=== PATIENT | male | born 1960 | race Hispanic/Latino ===

== ENCOUNTER 2020-12-21 22:42 | Emergency (ER) | payer MEDICARE ==
[2020-12-21 23:24] VITALS: BP 138/85
[2020-12-22 00:12] LABS: Basophils % (Auto) 0.4 % (0.0-1.8); Eosinophils # (Auto) 0.1 K/mm3 (0.0-0.4); Eosinophils % (Auto) 1.3 % (0.0-4.3); Hematocrit 40.4 % (35.5-45.6); Hemoglobin 13.5 gm/dl (11.8-15.2); Lymphocytes # (Auto) 1.8 K/mm3 (1.2-5.4); Lymphocytes % (Auto) 27.1 % (13.4-35.0); Mean Corpuscular HGB Conc 33 % (32-34); Mean Corpuscular Volume 83 fl (84-94); Monocytes # (Auto) 0.5 K/mm3 (0.0-0.8); Monocytes % (Auto) 7.3 % (0.0-7.3); Red Blood Count 4.86 M/mm3 (3.65-5.03); Red Cell Distribution Width 17.2 % (13.2-15.2)
[2020-12-22 00:23] LABS: Platelet Count 95 K/mm3 (140-440)
[2020-12-22 00:27] LABS: Alanine Aminotransferase 23 units/L (7-56); Albumin 4.4 g/dL (3.9-5); Blood Urea Nitrogen 22 mg/dL (9-20); Calcium 9.5 mg/dL (8.4-10.2); Hemolysis Index 3
[2020-12-22 00:28] LABS: BUN/Creatinine Ratio 37
--- NOTE | 2020-12-22 01:08 | Emergency Department Report ---
ED Abdominal Pain HPI - General Chief Complaint: Abdominal Pain Stated Complaint: ABD PAIN/EMESIS PUI?: No Time Seen by Provider: 12/22/20 01:01 Source: patient Mode of arrival: Wheelchair Limitations: Physical Limitation - History of Present Illness Initial Comments: Patient is a 60-year-old male who presents emergency room with complaints of right lower quadrant pain. Patient states he is having pain is in appendix. Patient states he had this once when he was 11 years old but never had his appendix removed. Patient states the pain started for 5 hours prior to arrival. Patient states the pain is worsening. Patient also complains of nausea and vomiting. Patient denies diarrhea. Patient denies fever and chills. Patient denies chest pain or shortness of breath. Patient states the pain is better with rest and worse with movement. Patient states the pain is better with remaining still. Patient denies recent travel. Patient denies recent international travel. Patient denies exposure to the novel coronavirus. Patient denies sick contacts. Patient denies fever and chills. Patient denies cough. Patient denies diarrhea. Patient denies coming in contact with anybody with symptoms of the novel coronavirus. MD Complaint: abdominal pain -: Sudden Location: RLQ Radiation: none Migration to: no migration Severity: severe Severity scale (0 -10): 10 Quality: stabbing Consistency: constant Improves With: rest Worsens With: movement Associated Symptoms: nausea, vomiting. denies: diarrhea, fever, chills, constipation, dysuria, hematemesis, hematochezia, melena, hematuria, anorexia, syncope - Related Data Previous Rx's Medication Instructions Recorded Last Taken Type Acetaminophen/Codeine [Tylenol 1 tab PO Q6H PRN #12 tab 12/22/20 Unknown Rx /Codeine # 3 tab] Ondansetron [Zofran Odt] 4 mg PO Q6HR PRN #12 tab.rapdis 12/22/20 Unknown Rx Allergies Allergy/AdvReac Type Severity Reaction Status Date / Time cyclobenzaprine Allergy Unknown Verified 12/21/20 23:24 [From Flexeril] heparin Allergy Unknown Verified 12/21/20 23:24 quetiapine [From Seroquel] Allergy Unknown Verified 12/21/20 23:24 ED Review of Systems ROS: Stated complaint: ABD PAIN/EMESIS Other details as noted in HPI Constitutional: denies: chills, fever Eyes: denies: eye pain, eye discharge, vision change ENT: denies: ear pain, throat pain Respiratory: denies: cough, shortness of breath, wheezing Cardiovascular: denies: chest pain, palpitations Endocrine: no symptoms reported Gastrointestinal: as per HPI, abdominal pain, nausea, vomiting. denies: diarrhea Genitourinary: denies: urgency, dysuria Musculoskeletal: denies: back pain, joint swelling, arthralgia Skin: denies: rash, lesions Neurological: denies: headache, weakness, paresthesias Psychiatric: denies: anxiety, depression Hematological/Lymphatic: denies: easy bleeding, easy bruising ED Past Medical Hx - Past Medical History Previous Medical History?: Yes Hx Hypertension: Yes Hx Diabetes: Yes Additional medical history: heart condition, hernia, neuropathy - Surgical History Past Surgical History?: Yes Hx Cholecystectomy: Yes Additional Surgical History: R finger - Family History Family history: no significant - Social History Smoking Status: Never Smoker Substance Use Type: None - Medications Home Medications: Home Medications Medication Instructions Recorded Confirmed Last Taken Type Acetaminophen/Codeine [Tylenol 1 tab PO Q6H PRN #12 tab 12/22/20 Unknown Rx /Codeine # 3 tab] Ondansetron [Zofran Odt] 4 mg PO Q6HR PRN #12 tab.rapdis 12/22/20 Unknown Rx ED Physical Exam - General Limitations: Physical Limitation General appearance: alert, in no apparent distress - Head Head exam: Present: atraumatic, normocephalic - Eye Eye exam: Present: normal appearance - ENT ENT exam: Present: mucous membranes moist - Neck Neck exam: Present: normal inspection - Respiratory Respiratory exam: Present: normal lung sounds bilaterally. Absent: respiratory distress, wheezes, rales - Cardiovascular Cardiovascular Exam: Present: regular rate, normal rhythm. Absent: systolic murmur, diastolic murmur, rubs, gallop - GI/Abdominal GI/Abdominal exam: Present: soft, tenderness, normal bowel sounds - Rectal Rectal exam: Present: deferred - Extremities Exam Extremities exam: Present: normal inspection - Back Exam Back exam: Present: normal inspection - Neurological Exam Neurological exam: Present: alert, oriented X3 - Psychiatric Psychiatric exam: Present: normal affect, normal mood - Skin Skin exam: Present: warm, dry, intact, normal color. Absent: rash ED Course Vital Signs 12/21/20 23:21 Temperature 99.0 F Pulse Rate 98 H Respiratory 16 Rate Blood Pressure 138/85 O2 Sat by Pulse 99 Oximetry - Reevaluation(s) Reevaluation #1: Patient states his pain is improved. Patient states his pain started to pick back up and would like another dose of pain medication. Patient states his nausea has resolved. 12/22/20 05:01 Reevaluation #2: Patient states feeling much better. Patient states nausea is resolved. Patient states the pain is down. I discussed all results and clinical findings with patient. I discussed plan of care with patient. Patient agrees with plan of care. Patient is stable for discharge. Patient will be discharged home. Patient given discharge instructions. Patient voiced understanding of discharge instructions. 12/22/20 05:22 ED Medical Decision Making - Lab Data Result diagrams: 12/21/20 23:49 12/21/20 23:49 - Radiology Data Radiology results: report reviewed CT abdomen pelvis w con INDICATION: R.L.Q. abdominal pain with nausea and vomiting. COMPARISON: None TECHNIQUE: Abdominal and pelvic CT exam performed. All CT scans at this location are performed using CT dose reduction for ALARA by means of automated exposure control. FINDINGS: CT ABDOMEN and PELVIS: Lung Bases: No significant abnormality. Liver: Suspect mild hepatic steatosis. There is mild nodular appearance of the liver. Biliary: Gallbladder is surgically absent. Spleen: Mild splenomegaly. Pancreas: No significant abnormality. Adrenals: No significant abnormality. Kidneys: No significant abnormality. Lymphatics: No lymphadenopathy. Vasculature: No significant abnormality. Bowel: Mild sigmoid colonic wall thickening. No diverticuli or surrounding colonic stranding. Possible appendix on image 119 of series 2. No inflammatory changes in the right lower quadrant to suggest appendicitis. Pelvis: No significant abnormality. Osseous Structures: No aggressive osseous lesion. Additional Findings: Incompletely visualized small fat-containing right inguinal hernia containing fluid. Vas deferens calcifications, seen in the setting of diabetes. IMPRESSION: 1. Findings suggestive of mild colitis. 2. Suspect early cirrhotic changes of the liver. - Medical Decision Making Patient is a 60-year-old male who presents emergency room with complaints of severe abdominal pain and nausea and vomiting. Patient had labs done which were essentially unremarkable. Patient was severely tender and a CT scan was done to rule out intra-abdominal process. Patient CT shows mild colitis and cirrhotic changes to the liver. Patient was given pain medications and antiemetics in the ER and he responded well. Patient discharged from the ER essentially asymp tomatic. Patient stable for discharge. Patient not require any inpatient or further emergency medical services. I discussed the case with GI and GI agrees with the plan of care. Patient discharged home. - Differential Diagnosis Gastroenteritis, nausea, vomiting, abdominal pain, appendicitis Critical care attestation.: If time is entered above; I have spent that time in minutes in the direct care of this critically ill patient, excluding procedure time. ED Disposition Clinical Impression: Gastroenteritis, Colitis Abdominal pain Qualifiers: Abdominal location: right lower quadrant Qualified Code(s): R10.31 - Right l ower quadrant pain Cirrhosis Qualifiers: Hepatic cirrhosis type: unspecified hepatic cirrhosis Ascites presence: without ascites Qualified Code(s): K74.60 - Unspecified cirrhosis of liver Disposition: DC-01 TO HOME OR SELFCARE Is pt being admited?: No Does the pt Need Aspirin: No Condition: Stable Instructions: Cirrhosis, Viral Gastroenteritis, Adult, [id number] Additional Instructions: Patient to follow-up with primary care in 2 to 3 days. Patient to follow-up with gastroenterology in 2 to 3 days. Patient to eat a brat diet. Patient to avoid alcohol use. Patient to rest. Patient to increase water. Patient to take Tylenol or ibuprofen as needed for pain. Patient to take meds as directed. Patient to return to the ER if condition worsens, changes or new symptoms arise. Prescriptions: Acetaminophen/Codeine [Tylenol /Codeine # 3 tab] 1 tab PO Q6H PRN #12 tab PRN Reason: Pain , Severe (7-10) Ondansetron [Zofran Odt] 4 mg PO Q6HR PRN #12 tab.rapdis PRN Reason: Nausea And Vomiting Referrals: MAXIMO DOVE MD [Staff Physician] - 2-3 Days SABINE CHRISTIANSON MD [Staff Physician] - 2-3 Days Time of Disposition: 05:26
[2020-12-22] MEDS ORDERED: HYDROmorphone 1 MG/1 ML INJ IV ONE ×2 (01:16→04:54)
[2020-12-22] MEDS ORDERED: ONDANSETRON 4 MG/2 ML INJ IV ONE (01:16)
[2020-12-22] MEDS ORDERED: SODIUM CHLORIDE 0.9% 1000 ML 1,000 ML IV ONE (01:20)
--- NOTE | 2020-12-22 03:41 | Cat Scan Report ---
CT abdomen pelvis w con INDICATION: R.L.Q. abdominal pain with nausea and vomiting. COMPARISON: None TECHNIQUE: Abdominal and pelvic CT exam performed. All CT scans at this location are performed using CT dose reduction for ALARA by means of automated exposure control. FINDINGS: CT ABDOMEN and PELVIS: Lung Bases: No significant abnormality. Liver: Suspect mild hepatic steatosis. There is mild nodular appearance of the liver. Biliary: Gallbladder is surgically absent. Spleen: Mild splenomegaly. Pancreas: No significant abnormality. Adrenals: No significant abnormality. Kidneys: No significant abnormality. Lymphatics: No lymphadenopathy. Vasculature: No significant abnormality. Bowel: Mild sigmoid colonic wall thickening. No diverticuli or surrounding colonic stranding. Possibl e appendix on image 119 of series 2. No inflammatory changes in the right lower quadrant to suggest a ppendicitis. Pelvis: No significant abnormality. Osseous Structures: No aggressive osseous lesion. Additional Findings: Incompletely visualized small fat-containing right inguinal hernia containing fl uid. Vas deferens calcifications, seen in the setting of diabetes. IMPRESSION: 1. Findings suggestive of mild colitis. 2. Suspect early cirrhotic changes of the liver. Signer Name: Blaine Rosales MD Signed: 12/22/2020 3:36 AM Workstation Name: [id number]
== END 2020-12-22 07:23 | disposition home or self-care (01) ==
LOC: ED 22:42
DX: K52.9 Noninfective gastroenteritis and colitis, unspecified (principal); K74.60 Unspecified cirrhosis of liver; R10.31 Right lower quadrant pain; I10 Essential (primary) hypertension; E11.9 Type 2 diabetes mellitus without complications; Z90.49 Acquired absence of other specified parts of digestive tract; Z98.890 Other specified postprocedural states; Z79.899 Other long term (current) drug therapy; Z88.8 Allergy status to other drugs, medicaments and biological substances
CPT/HCPCS: 36415; 74177; 80053; 85025; 96361; 96374; 96375; 96376; 99284; J1170; J2405; Q9967

== ENCOUNTER 2021-01-06 23:30 | Emergency (ER) | payer MEDICARE ==
[2021-01-07 03:45] LABS: Bilirubin,Urine NEG (Negative); Blood,Urine NEG (Negative); Color,Urine Yellow (Yellow); Mucus,Urine FEW /HPF; Protein,Urine <15 mg/dL mg/dL (Negative)
--- NOTE | 2021-01-07 03:45 | XRay Report ---
RIGHT KNEE 3 VIEWS INDICATION / CLINICAL INFORMATION: Pain and right knee. COMPARISON: None available. FINDINGS: BONES and JOINT(S): No acute fracture or subluxation. The bones are demineralized. A total knee arthr oplasty appears intact. Nonspecific lucency is seen at the tip of the stem of the tibial component. SOFT TISSUES: No significant abnormality. ADDITIONAL FINDINGS: None. IMPRESSION: 1. No acute findings. 2. Lucency along the tibial component of the right knee arthroplasty could represent loosening. Pleas e correlate with the clinical findings. Signer Name: Scott Phillips MD Signed: 01/07/2021 3:41 AM Workstation Name: [id number]
[2021-01-07 04:39] LABS: Basophils % (Auto) 0.5 % (0.0-1.8); Eosinophils # (Auto) 0.1 K/mm3 (0.0-0.4); Eosinophils % (Auto) 1.7 % (0.0-4.3); Hematocrit 38.7 % (35.5-45.6); Lymphocytes # (Auto) 1.7 K/mm3 (1.2-5.4); Mean Corpuscular HGB Conc 34 % (32-34); Mean Corpuscular Volume 85 fl (84-94); Monocytes # (Auto) 0.4 K/mm3 (0.0-0.8); Monocytes % (Auto) 7.1 % (0.0-7.3); Red Blood Count 4.56 M/mm3 (3.65-5.03); Red Cell Distribution Width 16.4 % (13.2-15.2)
[2021-01-07 04:40] LABS: Platelet Count 90 K/mm3 (140-440)
[2021-01-07 04:56] LABS: Alanine Aminotransferase 38 units/L (7-56); Albumin 4.4 g/dL (3.9-5); Blood Urea Nitrogen 16 mg/dL (9-20); Calcium 9.4 mg/dL (8.4-10.2); Hemolysis Index 2
[2021-01-07 05:14] LABS: BUN/Creatinine Ratio 27
[2021-01-07] MEDS ORDERED: ONDANSETRON 4 MG ODT TAB PO ONE (05:33)
[2021-01-07] MEDS ORDERED: HYDROcodone/ACETAMINOPHEN 5-325 MG TAB PO ONE (05:33)
[2021-01-07] MEDS ORDERED: IBUPROFEN 600 MG TAB PO ONE (05:33)
--- NOTE | 2021-01-07 05:42 | Emergency Department Report ---
ED Extremity Problem HPI - General Chief complaint: Abdominal Pain Stated complaint: HERNIA/RT KNEE PAIN Source: patient Mode of arrival: Ambulatory Limitations: Physical Limitation - History of Present Illness Initial comments: Patient is a 60-year-old white male with a history of hypertension, chronic osteoarthritis and s/p total right knee replacement 20 years ago, non-insulin- dependent diabetes, hyperlipidemia and diabetic neuropathy who presents to the ED with acute exacerbation of his chronic right knee pain for the last 1 week, worse in the last 2 days. Patient states that at times he loses balance and falls landing on the right knee multiple times because of worsening pain. Patient states that he has not been evaluated by orthopedic surgeon since he had the total right knee replacement surgery 20 years ago. Patient denies dizziness, syncope, chest pain, shortness of breath, abdominal pain, nausea and vomiting, numbness and tingling or weakness of lower extremities bilaterally, low back pain, hip pain, fever, chills, traumatic injury or heavy lifting. MD Complaint: extremity pain (Right knee pain), extremity swelling (Right knee pain and swelling), joint swelling (Right knee pain and swelling), joint paint (Right knee pain) -: Gradual, week(s) (1) Location: right (Right knee), lower extremity (Right knee pain), knee (Right knee pain) History of Same: Yes (Chronic osteoarthritis of right knee s/p total right knee replacement) -: No myalgia, Yes arthralgia (Right knee pain), No fever, No associated dyspnea, No associated chest pain Radiation: none Severity scale (0 -10): 8 Quality: aching, sharp Consistency: constant Improves with: nothing Worsens with: weight bearing, walking, exertion, palpation Associated Symptoms: denies other symptoms, arthralgias (Right knee pain). denies: chest pain, shortness of breath, fever, myalgias, rash - Related Data Previous Rx's Medication Instructions Recorded Last Taken Type Acetaminophen/Codeine [Tylenol 1 tab PO Q6H PRN #12 tab 12/22/20 Unknown Rx /Codeine # 3 tab] Ondansetron [Zofran Odt] 4 mg PO Q6HR PRN #12 tab.rapdis 12/22/20 Unknown Rx Diclofenac Sodium 75 mg PO Q8H PRN #30 tablet. 01/07/21 Unknown Rx predniSONE [Deltasone] 40 mg PO QDAY #10 tab 01/07/21 Unknown Rx traMADoL [Ultram] 50 mg PO Q6HR PRN #12 tablet 01/07/21 Unknown Rx Allergies Allergy/AdvReac Type Severity Reaction Status Date / Time cyclobenzaprine Allergy Unknown Verified 12/21/20 23:24 [From Flexeril] heparin Allergy Unknown Verified 12/21/20 23:24 quetiapine [From Seroquel] Allergy Unknown Verified 12/21/20 23:24 ED Review of Systems ROS: Stated complaint: HERNIA/RT KNEE PAIN Other details as noted in HPI Constitutional: denies: chills, fever Eyes: denies: eye pain, eye discharge, vision change ENT: denies: ear pain, throat pain Respiratory: denies: cough, shortness of breath, wheezing Cardiovascular: denies: chest pain, palpitations Endocrine: no symptoms reported Gastrointestinal: denies: abdominal pain, nausea, diarrhea Genitourinary: denies: urgency, dysuria Musculoskeletal: arthralgia (Right knee pain). denies: back pain, joint swelling Skin: denies: rash, lesions Neurological: denies: headache, weakness, paresthesias Psychiatric: denies: anxiety, depression Hematological/Lymphatic: denies: easy bleeding, easy bruising ED Past Medical Hx - Past Medical History Previous Medical History?: Yes Hx Hypertension: Yes Hx Diabetes: Yes Additional medical history: heart condition, hernia, neuropathy, hyperlipidemia - Surgical History Past Surgical History?: Yes Hx Cholecystectomy: Yes Additional Surgical History: R finger. Right knee replacement - Social History Smoking Status: Current Every Day Smoker Substance Use Type: None - Medications Home Medications: Home Medications Medication Instructions Recorded Confirmed Last Taken Type Acetaminophen/Codeine [Tylenol 1 tab PO Q6H PRN #12 tab 12/22/20 Unknown Rx /Codeine # 3 tab] Ondansetron [Zofran Odt] 4 mg PO Q6HR PRN #12 tab.dimitridis 12/22/20 Unknown Rx Diclofenac Sodium 75 mg PO Q8H PRN #30 tablet. 01/07/21 Unknown Rx predniSONE [Deltasone] 40 mg PO QDAY #10 tab 01/07/21 Unknown Rx traMADoL [Ultram] 50 mg PO Q6HR PRN #12 tablet 01/07/21 Unknown Rx ED Physical Exam - General Limitations: Physical Limitation General appearance: alert, in no apparent distress - Head Head exam: Present: atraumatic, normocephalic, normal inspection - Eye Eye exam: Present: normal appearance, PERRL, EOMI Pupils: Present: normal accommodation - ENT ENT exam: Present: normal exam, normal orophraynx, mucous membranes moist, TM's normal bilaterally, normal external ear exam - Neck Neck exam: Present: normal inspection, full ROM - Respiratory Respiratory exam: Present: normal lung sounds bilaterally. Absent: respiratory distress, wheezes, rales, rhonchi, chest wall tenderness, prolonged expiratory - Cardiovascular Cardiovascular Exam: Present: normal rhythm, tachycardia, normal heart sounds. Absent: systolic murmur, diastolic murmur, rubs, gallop - GI/Abdominal GI/Abdominal exam: Present: soft, normal bowel sounds. Absent: tenderness, guarding, rebound, hyperactive bowel sounds - Extremities Exam Extremities exam: Present: normal inspection, tenderness (Palpable severe right knee joint tenderness with swelling and crepitus), normal capillary refill, joint swelling (Right knee joint swelling). Absent: full ROM (Limited range of motion of right knee due to pain), pedal edema, calf tenderness - Back Exam Back exam: Present: normal inspection, full ROM. Absent: tenderness, CVA tenderness (R), CVA tenderness (L), muscle spasm, paraspinal tenderness, vertebral tenderness - Neurological Exam Neurological exam: Present: alert, oriented X3, CN II-XII intact, normal gait, reflexes normal - Psychiatric Psychiatric exam: Present: normal affect, normal mood - Skin Skin exam: Present: warm, dry, intact, normal color. Absent: rash ED Course Vital Signs 01/07/21 02:19 Temperature 98.1 F Pulse Rate 101 H Respiratory 18 Rate Blood Pressure 144/89 O2 Sat by Pulse 98 Oximetry ED Medical Decision Making - Lab Data Result diagrams: 01/07/21 03:43 01/07/21 03:43 - Medical Decision Making This is a 60-year-old white male with a history of hypertension, chronic osteoarthritis and s/p total right knee replacement 20 years ago, non-insulin- dependent diabetes, hyperlipidemia and diabetic neuropathy who presents to the ED with acute exacerbation of his chronic right knee pain for the last 1 week, worse in the last 2 days. Patient states that at times he loses balance and falls landing on the right knee multiple times because of worsening pain. Patient states that he has not been evaluated by orthopedic surgeon since he had the total right knee replacement surgery 20 years ago. In the ED, patient is alert and oriented x3 and is not in any distress, anxious and appears to be in pain. Patient was treated for pain in the ED and lab test results were reviewed and are all nonactionable. Patient's right knee was splinted with Jayson wrap for stability and patient was discharged home on pain medications and given a referral to the orthopedic surgeon Dr. Martinez for follow-up in the next 5 to 7 days. Patient was advised to return to the ED immediately if symptoms get worse. - Differential Diagnosis osteoarthritis; muscle strain; knee contusion; chronic pain Critical care attestation.: If time is entered above; I have spent that time in minutes in the direct care of this critically ill patient, excluding procedure time. ED Disposition Clinical Impression: Chronic osteoarthritis, Chronic knee pain after total replacement of right knee joint Disposition: DC- TO HOME OR SELFCARE Is pt being admited?: No Does the pt Need Aspirin: No Condition: Stable Instructions: Chronic Knee Pain, Adult, [id number], Arthritis, [id number] Additional Instructions: Take medication with food, drink plenty of fluids and follow-up with orthopedic surgeon Dr. Martinez as advised. Contacted to Juan's office first thing in the morning on Saturday January 09, 2021 to schedule a follow-up appointment. Return to the ED immediately if symptoms get worse. Prescriptions: predniSONE [Deltasone] 40 mg PO QDAY #10 tab Diclofenac Sodium 75 mg PO Q8H PRN #30 tablet.[address] RIDLEYN Reason: Pain , Severe (7-10) traMADoL [Ultram] 50 mg PO Q6HR PRN #12 tablet PRN Reason: Pain Referrals: ANTONIO MARTINEZ MD [Staff Physician] - 7-10 days Time of Disposition: 05:45 Print Language: ALBANIAN
[2021-01-07 07:25] VITALS: BP 137/93
== END 2021-01-07 09:18 | disposition home or self-care (01) ==
LOC: ED 23:30
DX: M25.561 Pain in right knee (principal); G89.29 Other chronic pain; M19.90 Unspecified osteoarthritis, unspecified site; I10 Essential (primary) hypertension; E11.9 Type 2 diabetes mellitus without complications; E78.5 Hyperlipidemia, unspecified; F17.200 Nicotine dependence, unspecified, uncomplicated; Z90.49 Acquired absence of other specified parts of digestive tract; Z98.890 Other specified postprocedural states; Z79.899 Other long term (current) drug therapy; Z88.8 Allergy status to other drugs, medicaments and biological substances; Z96.651 Presence of right artificial knee joint
CPT/HCPCS: 36415; 80053; 81001; 85025; Q0162